=== PATIENT | male | born 1970 | race Caucasian/White ===

== ENCOUNTER 2019-07-10 16:31 | Emergency (ER) | payer OTHER, SELFPAY ==
[~2019-07-10] VITALS: Ht 175.3 cm; Wt 78.8 kg
[2019-07-10 16:32] VITALS: BP 130/77
== END 2019-07-10 18:46 | disposition home or self-care (01) ==
LOC: ED 18:15
DX: L50.0 Allergic urticaria (principal); F17.200 Nicotine dependence, unspecified, uncomplicated
CPT/HCPCS: 99284; J7512; Q0177